=== PATIENT | male | born 1990 | race Caucasian/White ===

== ENCOUNTER 2022-03-03 17:41 | Emergency (ER) | payer MEDICAID, OTHER ==
[2022-03-03] MEDS ORDERED: DIPH,PERTUS(ACELL)TETVAC-LF 0.5 ML VIAL IM ONE (17:47)
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
[2022-03-03 18:05] LABS: Glucose,Whole Blood 145 mg/dL (70-110)
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
[2022-03-03 18:38] VITALS: BP 145/83; PULSE 82; RESP 16; TEMP 97.9
[2022-03-03 18:40] LABS: Basophils % (A) 0 %; Eosinophils # (A) 0.1 k/uL (0-0.7); Eosinophils % (A) 1 %; HGB 13.8 gm/dL (13.0-17.5); Lymphocytes # (A) 2.1 k/uL (1.0-4.8); Lymphocytes % (A) 21 %; MCH 31.6 pg (25.0-35.0); MCHC 35.4 g/dL (31.0-37.0); MCV 89.2 fL (80.0-100.0); Mean Platelet Volume 8.3; Monocytes # (A) 0.4 k/uL (0-1.0); Monocytes % (A) 4 %; Neutrophils # (A) 7.2 k/uL (1.3-7.7); Neutrophils % (A) 72 %; Platelet Count 211 k/uL (150-450); RBC 4.37 m/uL (4.30-5.90); RDW 12.7 % (11.5-15.5)
[2022-03-03] MEDS ORDERED: KETOROLAC 15 MG/ML 1 ML VIAL IVP STA (18:48)
[2022-03-03 18:51] LABS: Partial Thromboplastin Time 22.6 sec (22.0-30.0); Prothrombin Time 10.5 sec (9.0-12.0)
[2022-03-03 18:55] LABS: ALT 31 U/L (4-49); AST 29 U/L (17-59); African American GFR (CKD) >90 (>60 ml/min/1.73 sqM); Albumin 4.2 g/dL (3.5-5.0); Alcohol <10 mg/dL; Alkaline Phosphatase 78 U/L (38-126); Anion Gap 8 mmol/L; Blood Urea Nitrogen 16 mg/dL (9-20); Calcium 8.6 mg/dL (8.4-10.2); Carbon Dioxide 23 mmol/L (22-30); Chloride 105 mmol/L (98-107); Glucose 129 mg/dL (74-99); Non-African American GFR(CKD) >90 (>60 ml/min/1.73 sqM); Potassium 4.2 mmol/L (3.5-5.1); Sodium 136 mmol/L (137-145); Total Bilirubin 0.2 mg/dL (0.2-1.3); Total Protein 6.6 g/dL (6.3-8.2)
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
--- NOTE | 2022-03-03 20:40 | XR ---
EXAMINATION TYPE: XR clavicle LT, XR shoulder complete LT DATE OF EXAM: 03/03/2022 8:12 PM INDICATION: Patient age:Male; 31 years old; Reason for study: pain, fall; COMPARISON: CT same day TECHNIQUE: AP and cephalic tilt views were obtained of the left clavicle. Left shoulder in frontal la teral and scapular Y views. FINDINGS: Minimally comminuted left midclavicular fracture with 9 mm displacement. Visualized portions of the c hest are unremarkable. No additional fractures. IMPRESSION: Minimally comminuted left mid clavicle fracture as seen on CT chest same day.
[2022-03-03] MEDS ORDERED: traMADol 50 MG STARTER PACK 3 TAB BTL PO STA (20:50)
== END 2022-03-03 22:30 | disposition home or self-care (01) ==
LOC: EC 17:41
DX: S42.002A Fracture of unspecified part of left clavicle, initial encounter for closed fracture (principal); V18.0XXA Pedal cycle driver injured in noncollision transport accident in nontraffic accident, initial encounter
CPT/HCPCS: 99285 ×2; 96374 ×2; 90471 ×2; 36415; 86900; 86901; 80053; 84484; 85025; 85610; 85730; 86850; 72170; 73030; 73000; 71045; 72125; 70450; 71260; 74177; G0480; J1885; Q9967; 80320